=== PATIENT | female | born 1965 | race Caucasian/White ===

== ENCOUNTER 2024-07-17 17:01 | Emergency (ER) | payer OTHER, SELFPAY ==
[2024-07-17 17:37] VITALS: BP 120/71; PULSE 77; RESP 18; TEMP 36.6; BMI 25.8
--- NOTE | 2024-07-17 19:41 | W.ED.WOUNDLC ---
HPI - Wound/Laceration General: Chief Complaint: Wound/Laceration Stated Complaint: cut on both hands Time Seen by Provider: 07/17/24 18:50 History of Present Illness: 58-year-old female was carrying a brand-new stove helping her friend. They dropped it and a piece of the metal cut into her wrists bilaterally. She has lacerations on both sides near the volar crease. No arterial bleeding. No numbness or tingling. No loss of function or tendon involvement. Tetanus up-to-date. Requesting suture repair. Related Data Allergies Allergy/AdvReac Type Severity Reaction Status Date / Time No Known Allergies Allergy Verified 07/17/24 17:42 Review of Systems General: Reports: 10 or more systems reviewed and unremarkable except in HPI and below Physical Exam Narrative: EXAM NARRATIVE: 2.5 cm curvilinear laceration left wrist near wrist fold. 2 cm laceration right wrist near volar fold. Deep structures intact. No arterial bleeding. Const: COMMON NORMALS: no limitations, alert and well nourished EXAM LIMITATIONS: no altered mental status HENMT: COMMON NORMALS: normocephalic, atraumatic and external ears normal HEAD & SCALP: normocephalic and atraumatic EXTERNAL EAR: Yes external ears normal MOUTH: no muffled voice Eye: COMMON NORMALS: conjunctivae normal and no scleral icterus CONJUNCTIVA: Yes conjunctivae normal Neck/C-Spine: GENERAL: Yes normal visual inspection and Yes trachea midline Resp: COMMON NORMALS: normal respiratory effort and No use of accessory muscles Cardio: COMMON NORMALS: regular rate and regular rhythm RATE: regular rate RHYTHM: regular rhythm Neuro: COMMON NORMALS: moves all extremities, no focal motor deficits and no sensory deficits noted SENSORIUM/ORIENTATION: Yes alert SPEECH: speech normal Psych: COMMON NORMALS: mental status grossly normal, Normal thought process present, cooperative, normal affect and speech normal SPEECH: Yes normal speech THOUGHT PROCESS: Normal thought process present Skin: COMMON NORMALS: turgor normal and no jaundice GENERAL SKIN EXAM: turgor normal Procedures Laceration Laceration 1: Site: other (Right wrist) Side (If applicable): right Size (cm): 2 Description: other (Curvilinear) Depth: simple, single layer Local Anesthetic: lidocaine 1% Amount of anesthesia used (mL): 5 Pre-repair: wound explored, irrigated extensively and deep structures intact Skin layer closed with: nylon Size (cm): 4-0 Number of sutures: 3 Technique: simple, interrupted Laceration 2: Site: other (Left wrist) Side (If applicable): left Size (cm): 2.5 Description: other (Curvilinear) Depth: simple, single layer Local Anesthetic: lidocaine 1% Amount of anesthesia used (mL): 5 Pre-repair: wound explored, irrigated extensively and deep structures intact Skin layer closed with: nylon Size (cm): 4-0 Number of sutures: 4 Technique: simple, interrupted and running Course Vital Signs: Vital signs: Vital Signs Temperature 97.9 F 07/17/24 17:37 Pulse Rate 77 07/17/24 17:37 Respiratory Rate 18 07/17/24 17:37 Blood Pressure 120/71 07/17/24 17:37 Oxygen Delivery Me thod Room Air 07/17/24 17:37 MDM - Wound/Laceration Medical Decision Making Lacerations both wrist. Tetanus up-to-date. Sutures were used to repair the wounds. No radiology studies performed this visit Discharge Plan Discharge Patient Disposition: Home Clinical Impression: Laceration of left wrist Qualifiers: Encounter type: initial encounter Qualified Code(s): S61.512A - Laceration without foreign body of left wrist, initial encounter Laceration of right wrist Qualifiers: Encounter type: initial encounter Qualified Code(s): S61.511A - Laceration without foreign body of right wrist, initial encounter Condition: Stable Discharge Orders: Discharge ED (Routine); Ordered 07/17/24 Ordered By: Shmuel Solis Patient Instructions: Laceration (ED), Pain Management Activity Restrictions/Additional Instructions: Keep wounds clean and dry. Sutures need to be removed in 5-7 days. Go to closest ER if you have redness, fever, streaking, or pus. 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
== END 2024-07-17 19:59 | disposition home or self-care (01) ==
PROVIDERS: Emergency Provider Emergency Medicine
DX: S61.512A Laceration without foreign body of left wrist, initial encounter (principal); S61.511A Laceration without foreign body of right wrist, initial encounter; W26.8XXA Contact with other sharp object(s), not elsewhere classified, initial encounter
CPT/HCPCS: 12002; 99282